=== PATIENT | female | born 1960 | race Caucasian/White ===

== ENCOUNTER 2021-03-20 19:52 | Emergency (ER) | payer MEDICAID, OTHER ==
[~2021-03-20] VITALS: Ht 165.1 cm; Wt 78.0 kg
[2021-03-20] MEDS ORDERED: KETOROLAC 60MG/2ML VIAL IM ONE (20:45)
[2021-03-20] MEDS ORDERED: IBUP-2029 MT (21:40)
[2021-03-20] MEDS ORDERED: T3 PO (21:40)
[2021-03-20 21:48] VITALS: BP 148/78
== END 2021-03-20 21:49 | disposition home or self-care (01) ==
LOC: ER 19:52
DX: S80.11XA Contusion of right lower leg, initial encounter (principal); E11.9 Type 2 diabetes mellitus without complications; W18.39XA Other fall on same level, initial encounter; Y93.89 Activity, other specified; Y92.89 Other specified places as the place of occurrence of the external cause; Y99.8 Other external cause status
CPT/HCPCS: 73552; 73560; 73590; 96372; 99284; J1885

== ENCOUNTER 2021-07-05 20:20 | Emergency (ER) | payer MEDICAID ==
[~2021-07-05] VITALS: Ht 165.1 cm; Wt 77.0 kg
[~2021-07-05 20:20] MED LIST: IBUP-2029 MT; T3 PO
[2021-07-05 21:58] VITALS: BP 132/72
[2021-07-05] MEDS ORDERED: MUPI1OIN4 TP (23:14)
[2021-07-05] MEDS ORDERED: CEPH500T MT (23:14)
[2021-07-05] MEDS ORDERED: TETANUS, DIPHTHERIA, PERTUSSIS VAC/PF 0.5ML (>10YR OLD) IM ONE (23:15)
== END 2021-07-05 23:40 | disposition home or self-care (01) ==
LOC: ER 20:20
DX: S81.802A Unspecified open wound, left lower leg, initial encounter (principal); X58.XXXA Exposure to other specified factors, initial encounter; Y93.89 Activity, other specified; Y92.89 Other specified places as the place of occurrence of the external cause; Y99.8 Other external cause status
CPT/HCPCS: 90471; 90715; 99283; Z7610

== ENCOUNTER 2024-11-12 16:27 | Emergency (ER) | payer MEDICAID ==
[~2024-11-12] VITALS: Ht 165.1 cm; Wt 74.0 kg
[~2024-11-12 16:27] MED LIST changes: +CEPH500T MT; +MUPI1OIN4 TP
[2024-11-12 16:49] VITALS: O2SAT 100
[2024-11-12 17:49] LABS: BASOPHILS % 0.6 % (0.0-2.0); DIFFERENTIAL COMMENT 0; EOSINOPHILS % 1.3 % (0.0-5.0); HEMATOCRIT. 26.3 % (36.0-48.0); HEMOGLOBIN. 9.3 g/dL (12.0-16.0); LYMPHOCYTES % 11.1 % (20.0-50.0); MEAN CORPUSCULAR HEMOGLOBIN 33.6 pg (28.0-32.0); MEAN CORPUSCULAR HGB CONC 35.2 g/dL (31.0-37.0); MEAN CORPUSCULAR VOLUME 95.5 fL (81.0-99.0); MEAN PLATELET VOLUME 6.9 fl (7.4-10.4); MONOCYTES % 11.9 % (2.0-8.0); NEUTROPHILS % 75.1 % (40.0-76.0); PLATELET 115 x1000/uL (130-400); RED BLOOD CELL COUNT 2.76 mill/uL (4.2-5.4); RED CELL DISTRIBUTION WIDTH 19.9 % (11.6-14.6); WHITE BLOOD COUNT 2.9 x1000/uL (4.5-11.0)
[2024-11-12 17:52] LABS: CHLORIDE 105 mEq/L (98-107); POTASSIUM 3.8 mEq/L (3.5-5.1); SODIUM 141 mEq/L (136-145)
[2024-11-12 17:53] LABS: CALCIUM 9.2 mg/dL (8.7-10.4); CARBON DIOXIDE 29 mEq/L (21-32)
[2024-11-12 17:58] LABS: CREATININE 0.9 mg/dL (0.6-1.0); GLUCOSE 211 mg/dL (70-105); UREA NITROGEN BLOOD 17 mg/dL (9-23)
[2024-11-12 18:00] LABS: ALANINE AMINOTRANSFERASE 36 IU/L (10-49); ALBUMIN 4.2 g/dL (3.2-4.8); ASPARTATE AMINOTRANSFERASE 20 IU/L (<34); BILIRUBIN DIRECT 0.1 mg/dL (<=3.0); BILIRUBIN TOTAL 0.7 mg/dL (0.1-1.0); PROTEIN TOTAL 6.1 g/dL (6.0-8.3)
[2024-11-12 18:02] LABS: PARTIAL THROMBOPLASTIN TIME 25.8 sec (23.4-31.0); PROTHROMBIN TIME 10.3 sec (9.6-11.0)
[2024-11-12 19:14] VITALS: BP 129/89; PULSE 85; RESP 16; O2SAT 99
== END 2024-11-12 19:17 | disposition home or self-care (01) ==
LOC: ER 16:27
DX: M79.89 Other specified soft tissue disorders (principal); E11.9 Type 2 diabetes mellitus without complications; I10 Essential (primary) hypertension; Z85.72 Personal history of non-Hodgkin lymphomas
CPT/HCPCS: 36415; 80048; 80076; 85025; 93970; 99284